=== PATIENT | male | born 1990 | race Caucasian/White ===

== ENCOUNTER 2017-01-20 14:31 | Emergency (ER) | payer BC ==
[2017-01-20 15:12] VITALS: BP 123/55
--- NOTE | 2017-01-20 15:18 | UC ---
Respiratory Complaint HPI - HPI Summary HPI Summary: cough and nasal congestion for 3 days, no fever - History of Current Complaint Chief Complaint: UCRespiratory Stated Complaint: COUGH Time Seen by Provider: 01/20/17 15:10 Hx Obtained From: Patient Onset/Duration: Sudden Onset, Lasting Days - 3, Still Present Timing: Constant Severity Initially: Mild Severity Currently: Mild Pain Intensity: 2 Character: Cough: Nonproductive Aggravating Factors: Allergens, Exertion Alleviating Factors: Nothing Associated Signs And Symptoms: Positive: Pleuritic Chest Pain, URI, Nasal Congestion, Hoarseness - Allergies/Home Medications Allergies/Adverse Reactions: Allergies Allergy/AdvReac Type Severity Reaction Status Date / Time Tuberculin Allergy Unknown Verified 01/20/17 15:08 [From Tuberculin PPD Emily Reaction Test] Details environmental Allergy Congestion Uncoded 01/20/17 15:08 PMH/Surg Hx/FS Hx/Imm Hx Previously Healthy: Yes - deviated Septum repair 2015 - Surgical History Surgical History: Yes Surgery Procedure, Year, and Place: right ankle 2005. appy [facility]. neck laceration with 23 stitches - Family History Known Family History: Positive: Unknown Family History: no know cardiovascular issues in family lineage - Social History Occupation: Employed Full-time Lives: With Family Alcohol Use: Weekly Alcohol Amount: WEEKENDS Substance Use Type: Marijuana Substance Use Comment - Amount & Last Used: last use - last weekend Smoking Status (MU): Never Smoked Tobacco - Immunization History Most Recent Influenza Vaccination: None Most Recent Tetanus Shot: UTD Most Recent Pneumonia Vaccination: N/A Review of Systems Constitutional: Negative Skin: Negative Eyes: Negative ENT: Nasal Discharge Respiratory: Cough Cardiovascular: Negative Gastrointestinal: Negative Genitourinary: Negative Motor: Negative Neurovascular: Negative Musculoskeletal: Negative Neurological: Negative Psychological: Negative All Other Systems Reviewed And Are Negative: Yes Physical Exam Triage Information Reviewed: Yes Appearance: Well-Appearing, No Pain Distress Vital Signs: Initial Vital Signs Temp 99.3 F 01/20/17 15:09 Pulse 67 01/20/17 15:09 Resp 18 01/20/17 15:09 BP 123/55 01/20/17 15:09 Pulse Ox 99 01/20/17 15:09 Vital Signs Reviewed: Yes Eye Exam: Normal Eyes: Positive: Conjunctiva Clear ENT Exam: Normal ENT: Positive: Normal ENT inspection, Hearing grossly normal, Pharynx normal, Nasal congestion, Nasal drainage, TMs normal. Negative: Tonsillar swelling, Tonsillar exudate, Trismus, Muffled/hoarse voice Dental Exam: Normal Neck exam: Normal Neck: Positive: Supple, Nontender, No Lymphadenopathy Respiratory Exam: Normal Respiratory: Positive: Chest non-tender, Lungs clear, Normal breath sounds, No respiratory distress, No accessory muscle use Cardiovascular Exam: Normal Cardiovascular: Positive: RRR, No Murmur, Pulses Normal, Brisk Capillary Refill Musculoskeletal Exam: Normal Musculoskeletal: Positive: Strength Intact, ROM Intact, No Edema Neurological Exam: Normal Neurological: Positive: Alert, Muscle Tone Normal Psychological Exam: Normal Skin Exam: Normal Diagnostic Evaluation - Laboratory O2 Sat by Pulse Oximetry: 99 Respiratory Course/Dx - Course Course Of Treatment: Zyrtec D, Flonase, Increase fluids, follow with pcp - Differential Dx/Diagnosis Differential Diagnosis/HQI/PQRI: Bronchitis, Influenza, Laryngitis, Lower Resp Infection, Sinusitis Provider Diagnoses: Allergic rhinnosinusitis Discharge - Discharge Plan Condition: Stable Disposition: HOME Prescriptions: Albuterol HFA INHALER* [Ventolin HFA Inhaler*] 2 puff INH Q4H PRN #1 mdi PRN Reason: cough/chest congestion Cetirizine-Pseudoephedrine [Zyrtec-D Allergy/Congesti] 1 tab PO BID PRN #20 tab PRN Reason: Sinus congestion, nasal draina Fluticasone NASAL SPRAY 50MCG* [Flonase NASAL SPRAY 50MCG*] 2 spray BOTH NARES DAILY #1 btl Patient Education Materials: How to Use a Metered-Dose Inhaler (ED), Allergic Rhinitis (ED), Acute Cough (ED), How to Use Nasal [place] (ED) Referrals: Charles LOPEZ,Bobo Mariee [Primary Care Provider] - 1 Week
[2017-01-20] MEDS ORDERED: Albuterol HFA INHALER* 8 gm MDI INH ONE (17:17)
== END 2017-01-20 15:58 | disposition home or self-care (01) ==
LOC: UCCORT 14:31
DX: J30.9 Allergic rhinitis, unspecified (principal)
CPT/HCPCS: 99212; A9270-GY; G0463

== ENCOUNTER 2017-04-11 17:11 | Emergency (ER) | payer BC ==
[2017-04-11 17:47] VITALS: BP 123/66
--- NOTE | 2017-04-11 18:04 | UC ---
Lower Extremity/Ankle HPI - HPI Summary HPI Summary: Patient injuryed left ankle playing baseball. - History of Current Complaint Chief Complaint: UCLowerExtremity Stated Complaint: ankle injury Time Seen by Provider: 04/11/17 17:55 Hx Obtained From: Patient Onset/Duration: Sudden Onset, Lasting Hours Severity Initially: Severe Severity Currently: Moderate Aggravating Factor(s): Standing, Ambulation Alleviating Factor(s): Rest Able to Bear Weight: No - Risk Factors Gout Risk Factors: Negative DVT Risk Factors: Negative Septic Arthritis Risk Factor: Negative - Allergies/Home Medications Allergies/Adverse Reactions: Allergies Allergy/AdvReac Type Severity Reaction Status Date / Time Tuberculin Allergy Unknown Verified 04/11/17 17:48 [From Tuberculin PPD Emily Reaction Test] Details environmental Allergy Congestion Uncoded 04/11/17 17:48 PMH/Surg Hx/FS Hx/Imm Hx Previously Healthy: Yes - Surgical History Surgical History: Yes Surgery Procedure, Year, and Place: right ankle 2004. [place] [facility] [place] [facility] [place] neck laceration with 23 stitches - Family History Family History: no know cardiovascular issues in family lineage - Social History Alcohol Use: Weekly Alcohol Amount: WEEKENDS Substance Use Type: Marijuana Substance Use Comment - Amount & Last Used: last use - last weekend Smoking Status (MU): Never Smoked Tobacco - Immunization History Most Recent Influenza Vaccination: None Most Recent Tetanus Shot: UTD Most Recent Pneumonia Vaccination: N/A Review of Systems Constitutional: Negative Skin: Negative Eyes: Negative ENT: Negative Respiratory: Negative Cardiovascular: Negative Gastrointestinal: Negative Genitourinary: Negative Motor: Negative Neurovascular: Negative Musculoskeletal: Arthralgia, Decreased ROM, Edema, Myalgia Neurological: Negative Psychological: Negative All Other Systems Reviewed And Are Negative: Yes Physical Exam Triage Information Reviewed: Yes Appearance: Well-Appearing, Well-Nourished, Pain Distress Vital Signs: Initial Vital Signs Temp 100.0 F 04/11/17 17:41 Pulse 70 04/11/17 17:41 Resp 18 04/11/17 17:41 BP 123/66 04/11/17 17:41 Pulse Ox 97 04/11/17 17:41 Vital Signs Reviewed: Yes Eye Exam: Normal ENT Exam: Normal Dental Exam: Normal Neck exam: Normal Neck: Positive: Supple, Nontender, No Lymphadenopathy Respiratory Exam: Normal Respiratory: Positive: Chest non-tender, Lungs clear, Normal breath sounds Cardiovascular Exam: Normal Abdominal Exam: Normal Bowel Sounds: Positive: Present Musculoskeletal: Positive: Strength Limited @, ROM Limited @, Edema @ Neurological Exam: Normal Neurological: Positive: Alert, Muscle Tone Normal Psychological Exam: Normal Skin Exam: Normal Lower Extremity Course/Dx - Course Course Of Treatment: hx obtained, exam performed, meds reviewed, xray obtained, negative, patient refused pain medication, mk and splint applied. - Differential Dx/Diagnosis Differential Diagnosis/HQI/PQRI: Cellulitis, Contusion, Dislocation, Fracture ( Closed), Sprain, Strain Provider Diagnoses: muscle strain left lower leg. ankle sprain left Discharge - Discharge Plan Condition: Stable Disposition: HOME Patient Education Materials: Ankle Strain (ED) Additional Instructions: 1. use the mk and gel splint for swelling and stability 2. Rest and elevate 3. Ibuprofen for pain and swelling. 4. Follow up if not improving
--- NOTE | 2017-04-11 18:14 | RAD ---
INDICATION: Left ankle injury COMPARISON: None TECHNIQUE: AP, lateral, and oblique views were obtained. FINDINGS: There is no acute fracture or dislocation. There is mild lateral soft tissue swelling. IMPRESSION: MILD LATERAL SOFT TISSUE SWELLING.
== END 2017-04-11 18:30 | disposition home or self-care (01) ==
LOC: UCEAST 17:11
DX: S96.912A Strain of unspecified muscle and tendon at ankle and foot level, left foot, initial encounter (principal); X58.XXXA Exposure to other specified factors, initial encounter; Y93.67 Activity, basketball; Y92.9 Unspecified place or not applicable; Y99.9 Unspecified external cause status
CPT/HCPCS: 99213; G0463

== ENCOUNTER 2017-09-19 12:01 | Emergency (ER) | payer BC ==
[2017-09-19 12:30] VITALS: BP 121/64
--- NOTE | 2017-09-19 13:04 | RAD ---
Indication: Lateral LEFT ankle and foot pain following inversion injury. Comparison: April 11, 2017 Technique: AP, mortise, and lateral views LEFT ankle. Report: Negative for fracture or malalignment. Soft tissue swelling most prominent over the lateral malleolus. Suggestion of talocrural joint effusion. IMPRESSION: Consider lateral supporting ligament injury.
--- NOTE | 2017-09-19 13:06 | RAD ---
Indication: Lateral LEFT ankle and foot pain following inversion injury. Comparison: Ankle of the same date and November 09, 2012 LEFT foot exam. Technique: AP, lateral, and oblique views LEFT foot. REPORT AND IMPRESSION: Negative for fracture or malalignment. Normal variant bipartite sesamoid at the medial head of the flexor hallucis brevis. Lateral ankle and hindfoot soft tissue swelling.
--- NOTE | 2017-09-19 13:40 | UC ---
Lower Extremity/Ankle HPI - HPI Summary HPI Summary: WHILE PLAYING BASKETBALL, LANDED ON ANOTHER PLAYERS FOOT AND TWISTED LEFT ANKLE ONE HOUR CAN [employer]OVERER. NO PREVIOUS INJURY. - History of Current Complaint Chief Complaint: UCLowerExtremity Stated Complaint: LEFT ANKLE INJURY Time Seen by Provider: 09/19/17 12:26 Hx Obtained From: Patient Onset/Duration: Sudden Onset, Lasting Hours Severity Initially: Severe Severity Currently: Moderate Aggravating Factor(s): Standing, Ambulation Alleviating Factor(s): Rest, Elevation, Ice Able to Bear Weight: No - Risk Factors Gout Risk Factors: Negative DVT Risk Factors: Negative Septic Arthritis Risk Factor: Negative - Allergies/Home Medications Allergies/Adverse Reactions: Allergies Allergy/AdvReac Type Severity Reaction Status Date / Time Tuberculin Allergy Unknown Verified 09/19/17 12:26 [From Tuberculin PPD Emily Reaction Test] Details environmental Allergy Congestion Uncoded 09/19/17 12:26 Home Medications: Home Medications NK [No Home Medications Reported] 09/19/17 [History Confirmed 09/19/17] PMH/Surg Hx/FS Hx/Imm Hx Previously Healthy: Yes - Surgical History Surgical History: Yes Surgery Procedure, Year, and Place: right ankle 2005. appy [facility]. neck laceration with 23 stitches - Family History Known Family History: Positive: Unknown Family History: no know cardiovascular issues in family lineage - Social History Occupation: Employed Full-time Lives: With Family Alcohol Use: Weekly Alcohol Amount: WEEKENDS Substance Use Type: Marijuana Substance Use Comment - Amount & Last Used: Daily & Today Smoking Status (MU): Never Smoked Tobacco - Immunization History Most Recent Influenza Vaccination: Not the 2016/2017 Season Most Recent Tetanus Shot: 2017 Most Recent Pneumonia Vaccination: N/A Review of Systems Constitutional: Negative Skin: Negative Eyes: Negative ENT: Negative Respiratory: Negative Cardiovascular: Negative Gastrointestinal: Negative Genitourinary: Negative Motor: Negative Neurovascular: Negative Musculoskeletal: Arthralgia, Edema - LEFT LATERAL ANKLE, Myalgia Neurological: Negative Psychological: Negative Is Patient Immunocompromised?: No All Other Systems Reviewed And Are Negative: Yes Physical Exam Triage Information Reviewed: Yes Appearance: Well-Appearing, No Pain Distress, Well-Nourished Vital Signs: Initial Vital Signs Temp 99.4 F 09/19/17 12:25 Pulse 88 09/19/17 12:25 Resp 16 09/19/17 12:25 BP 121/64 09/19/17 12:25 Pulse Ox 100 09/19/17 12:25 Vital Signs Reviewed: Yes Eye Exam: Normal ENT Exam: Normal ENT: Positive: Normal ENT inspection Dental Exam: Normal Neck exam: Normal Neck: Positive: Supple, Nontender Respiratory Exam: Normal Respiratory: Positive: Chest non-tender, Lungs clear, Normal breath sounds, No respiratory distress, No accessory muscle use Cardiovascular Exam: Normal Cardiovascular: Positive: RRR, No Murmur, Pulses Normal, Brisk Capillary Refill Abdominal Exam: Normal Abdomen Description: Positive: Nontender, No Organomegaly Musculoskeletal: Positive: Strength Limited @, ROM Limited @, Edema @ - LEFT LATERAL ANKLE Neurological Exam: Normal Psychological Exam: Normal Skin Exam: Normal Diagnostics - Radiology No standard instances Xray Interpretation: Positive (See Comments) Radiology Interpretation Completed By: Radiologist - Interpreted by radiologist , reviewed by [place]. Interpretation :NO FRACTURE; CONSIDER LATERAL SUPPORTING LIGAMENT INJURY Lower Extremity Course/Dx - Differential Dx/Diagnosis Differential Diagnosis/HQI/PQRI: Fracture (Closed), Sprain, Strain Provider Diagnoses: LEFT ANKLE SPRAIN WITH LATERAL SUPPORTING LIGAMENT INJURY. Discharge - Discharge Plan Condition: Stable Disposition: HOME Patient Education Materials: Ankle Sprain (ED), Swollen Ankle Joint (ED) Forms: *Work Release Referrals: Singh Hu MD [Medical Doctor] - Bobo Soto MD [Primary Care Provider] - Additional Instructions: LIKELY LATERAL SUPPORTING LIGAMENT INJURY OF THE LEFT ANKLE.
== END 2017-09-19 13:53 | disposition home or self-care (01) ==
LOC: UCCORT 12:01
DX: S93.402A Sprain of unspecified ligament of left ankle, initial encounter (principal); W51.XXXA Accidental striking against or bumped into by another person, initial encounter; Y93.67 Activity, basketball; Y92.310 Basketball court as the place of occurrence of the external cause; F12.90 Cannabis use, unspecified, uncomplicated
CPT/HCPCS: 99213; G0463

== ENCOUNTER 2017-09-28 13:54 | Emergency (ER) | payer BC ==
--- NOTE | 2017-09-28 15:54 | UC ---
Lower Extremity/Ankle HPI - HPI Summary HPI Summary: 27 year old male presents for recheck of left ankle sprain. - History of Current Complaint Stated Complaint: RECHECK LEFT ANKLE Time Seen by Provider: 09/28/17 15:53 Hx Obtained From: Patient Onset/Duration: Sudden Onset Severity Initially: Moderate Severity Currently: Moderate Pain Scale Used: 0-10 Numeric - 6 Aggravating Factor(s): Nothing Alleviating Factor(s): Nothing - Allergies/Home Medications Allergies/Adverse Reactions: Allergies Allergy/AdvReac Type Severity Reaction Status Date / Time Tuberculin Allergy Unknown Verified 09/28/17 16:00 [From Tuberculin PPD Emily Reaction Test] Details environmental Allergy Congestion Uncoded 09/28/17 16:00 PMH/Surg Hx/FS Hx/Imm Hx Previously Healthy: Yes - Surgical History Surgical History: Yes Surgery Procedure, Year, and Place: right ankle 2004. appy [facility]. neck laceration with 23 stitches - Family History Known Family History: Positive: Unknown Family History: no know cardiovascular issues in family lineage - Social History Alcohol Use: Weekly Alcohol Amount: WEEKENDS Substance Use Type: Marijuana Substance Use Comment - Amount & Last Used: Daily & Today Smoking Status (MU): Never Smoked Tobacco - Immunization History Most Recent Influenza Vaccination: Not the 2017/2017 Season Most Recent Tetanus Shot: 2017 Most Recent Pneumonia Vaccination: N/A Review of Systems Constitutional: Negative Skin: Negative Eyes: Negative ENT: Negative Respiratory: Negative Cardiovascular: Negative Gastrointestinal: Negative Genitourinary: Negative Motor: Negative Neurovascular: Negative Musculoskeletal: Other: - left ankle pain Neurological: Negative Psychological: Negative All Other Systems Reviewed And Are Negative: Yes Physical Exam Triage Information Reviewed: Yes Vital Signs Reviewed: Yes Eye Exam: Normal ENT Exam: Normal Dental Exam: Normal Neck exam: Normal Neck: Positive: 1 Respiratory Exam: Normal Cardiovascular Exam: Normal Abdominal Exam: Normal Musculoskeletal: Positive: Other: - left ankle pain Neurological Exam: Normal Psychological Exam: Normal Skin Exam: Normal Lower Extremity Course/Dx - Differential Dx/Diagnosis Provider Diagnoses: resolving left ankle sprain Discharge - Discharge Plan Condition: Stable Disposition: HOME Prescriptions: Meloxicam [Mobic] 7.5 mg PO BID #30 tab Patient Education Materials: Ankle Sprain (ED) Forms: *Work Release Referrals: Charles LOPEZ,Bobo Mariee [Medical Doctor] -
[2017-09-28 16:00] VITALS: BP 118/74
== END 2017-09-28 16:16 | disposition home or self-care (01) ==
LOC: UCCORT 13:54
DX: S93.402D Sprain of unspecified ligament of left ankle, subsequent encounter (principal); X58.XXXD Exposure to other specified factors, subsequent encounter; Z88.8 Allergy status to other drugs, medicaments and biological substances; F12.90 Cannabis use, unspecified, uncomplicated
CPT/HCPCS: 99212; G0463

== ENCOUNTER 2019-08-21 08:46 | Emergency (ER) | payer BC ==
[2019-08-21 09:12] VITALS: BP 116/82
--- NOTE | 2019-08-21 09:51 | UC ---
Eye Complaint HPI - HPI Summary HPI Summary: 29-year-old male comes in with chief complaint of swelling and redness of the right upper eyelid. Going on for about 4 days. He did have a pustule that resolved. He has been using warm compresses. Is been no improvement in the last couple of days and he is getting some crusting in the morning. Minimal rhinorrhea. Pain is worse when he is blinking his eye. No fevers no chills feels well otherwise. - History of Current Complaint Chief Complaint: UCEye Stated Complaint: RT EYE CONCERN Time Seen by Provider: 08/21/19 09:39 Pain Intensity: 3 - Allergies/Home Medications Allergies/Adverse Reactions: Allergies Allergy/AdvReac Type Severity Reaction Status Date / Time tuberculin,PPD,multi-puncture Allergy Unknown Verified 08/21/19 09:13 Reaction Details Starts with a "K" Allergy Unknown Uncoded 08/21/19 09:13 Reaction as a Child PMH/Surg Hx/FS Hx/Imm Hx Previously Healthy: Yes - Surgical History Surgical History: Yes Surgery Procedure, Year, and Place: right ankle 2005. appy [facility]. neck laceration with 23 stitches - Family History Known Family History: Positive: Unknown Family History: no know cardiovascular issues in family lineage - Social History Alcohol Use: Weekly Alcohol Amount: WEEKENDS Substance Use Type: Marijuana Substance Use Comment - Amount & Last Used: Daily Smoking Status (MU): Former Smoker Length of Time of Smoking/Using Tobacco: Daily Smokeless Tobacco x 8 Years When Did the Patient Quit Smoking/Using Tobacco: ~2014 - Immunization History Most Recent Influenza Vaccination: Not the 2017/2017 Season Most Recent Tetanus Shot: 2017 Most Recent Pneumonia Vaccination: N/A Review of Systems All Other Systems Reviewed And Are Negative: Yes Constitutional: Positive: Negative Skin: Positive: Other - SEE HPI Eyes: Positive: Drainage, Other - SEE HPI ENT: Positive: Nasal Discharge Respiratory: Positive: Negative Cardiovascular: Positive: Negative Gastrointestinal: Positive: Negative Motor: Positive: Negative Neurovascular: Positive: Negative Musculoskeletal: Positive: Negative Neurological: Positive: Negative Psychological: Positive: Negative Is Patient Immunocompromised?: No Physical Exam Triage Information Reviewed: Yes Appearance: Well-Appearing, No Pain Distress, Well-Nourished Vital Signs: Initial Vital Signs Temp 97.5 F 08/21/19 09:09 Pulse 94 08/21/19 09:09 Resp 16 08/21/19 09:09 BP 116/82 08/21/19 09:09 Pulse Ox 99 08/21/19 09:09 Vital Signs Reviewed: Yes Eyes: Positive: Conjunctiva Clear, Other: - Right upper eyelid is swollen and erythematous. There is no scleral injection. ENT: Negative: Nasal drainage Neck: Positive: Supple Respiratory: Positive: No respiratory distress Musculoskeletal: Positive: Strength Intact, ROM Intact Neurological: Positive: Alert Psychological: Positive: Age Appropriate Behavior Skin: Positive: Other - Right upper eyelid is swollen and erythematous. Eye Complaint Course/Dx - Course Course Of Treatment: Patient has a sty of the right upper eyelid. We'll treat with tobramycin. Is a question of whether or not the erythema is spreading past the eyelid into a potential cellulitis therefore we'll treat with Keflex by mouth also. Patient' s he reevaluate if worsening questions or concerns. - Differential Dx/Diagnosis Provider Diagnosis: Hordeolum of right upper eyelid Discharge ED - Sign-Out/Discharge Documenting (check all that apply): Patient Departure All imaging exams completed and their final reports reviewed: No Studies - Discharge Plan Condition: Stable Disposition: HOME Prescriptions: Cephalexin CAP* [Keflex CAP*] 500 mg PO TID #30 cap Tobramycin 0.3% OPHTH.ARISTIDES* 1 drop RIGHT EYE Q4H #1 btl Patient Education Materials: Cellulitis (ED), Stye (ED) Referrals: [facility] [Provider Group] Guero Nascimento MD [Medical Doctor] - Adri Mohan MD [Medical Doctor] - Additional Instructions: FOLLOW UP WITH OPHTHALMOLOGY IF NOT COMPLETELY IMPROVED. GET REEVALUATED IF NOT IMPROVING OR WORSE; PAIN, SPREAD OF INFECTION, FEVER, YOU FEEL ILL OR ANY QUESTIONS OR CONCERNS. - Billing Disposition and Condition Condition: STABLE Disposition: Home
== END 2019-08-21 10:00 | disposition home or self-care (01) ==
LOC: UCCORT 08:46
DX: H00.011 Hordeolum externum right upper eyelid (principal); Z87.891 Personal history of nicotine dependence
CPT/HCPCS: 99212; G0463

== ENCOUNTER 2019-12-13 08:36 | Emergency (ER) | payer BC ==
[2019-12-13 08:54] VITALS: BP 118/72
--- NOTE | 2019-12-13 10:37 | UC ---
Epistaxis Nasal HPI - HPI Summary HPI Summary: sore in left nostril x 1 weeks the sore is tender , feel like a scab , pt. remove the scab and made it bleed, no nasal congestion , no pnd , no fever, no chills - History of Current Complaint Chief Complaint: UCGeneralIllness Stated Complaint: NASAL COMPLAINT Time Seen by Provider: 12/13/19 09:11 Hx Obtained From: Patient Onset/Duration: Gradual Onset, Lasting Days - 5, Still Present Timing: Constant Severity Initially: Moderate Severity Currently: Moderate Pain Intensity: 0 Pain Scale Used: 0-10 Numeric Aggravating Factor(s): Nothing Alleviating Factor(s): Nothing Associated Signs And Symptoms: Negative: Bruising, Hematuria, Hematochezia, Sinus Pain, Nasal Discharge, Recent Abnormal Coagulation Studies, Foreign Body - Allergies/Home Medications Allergies/Adverse Reactions: Allergies Allergy/AdvReac Type Severity Reaction Status Date / Time tuberculin,PPD,multi-puncture Allergy Unknown Verified 12/13/19 08:54 Reaction Details Starts with a "K" Allergy Unknown Uncoded 12/13/19 08:54 Reaction as a Child Home Medications: Home Medications Fluticasone NASAL SPRAY 50MCG* [Flonase NASAL SPRAY 50MCG*] 2 spray BOTH NARES DAILY #1 btl 12/13/19 [Rx] PMH/Surg Hx/FS Hx/Imm Hx - Additional Past Medical History Additional PMH: nose injury / broken nose x 2 nasal surgery - Surgical History Surgical History: Yes Surgery Procedure, Year, and Place: right ankle 2005. appy [facility]. neck laceration with 23 stitches - Family History Known Family History: Positive: Unknown Negative: Diabetes Family History: no know cardiovascular issues in family lineage - Social History Alcohol Use: Weekly Alcohol Amount: WEEKENDS Substance Use Type: Marijuana Substance Use Comment - Amount & Last Used: Daily Smoking Status (MU): Former Smoker Length of Time of Smoking/Using Tobacco: Daily Smokeless Tobacco x 8 Years When Did the Patient Quit Smoking/Using Tobacco: ~2013 - Immunization History Most Recent Influenza Vaccination: Not the 2017/2017 Season Most Recent Tetanus Shot: 2017 Most Recent Pneumonia Vaccination: N/A Review of Systems All Other Systems Reviewed And Are Negative: Yes Is Patient Immunocompromised?: No Physical Exam Triage Information Reviewed: Yes Appearance: Well-Appearing, No Pain Distress, Well-Nourished Vital Signs: Initial Vital Signs Temp 98.4 F 12/13/19 08:47 Pulse 50 12/13/19 08:47 Resp 16 12/13/19 08:47 BP 118/72 12/13/19 08:47 Pulse Ox 100 12/13/19 08:47 Vital Signs Reviewed: Yes Eye Exam: Normal Eyes: Positive: Conjunctiva Clear ENT: Positive: Normal ENT inspection, Hearing grossly normal, Pharynx normal, Other - nasal polyps bilateral Neck: Positive: Supple, Nontender, No Lymphadenopathy Respiratory Exam: Normal Respiratory: Positive: Chest non-tender, Lungs clear Cardiovascular: Positive: RRR, No Murmur, Pulses Normal Abdominal Exam: Normal Epistaxis Nasal Course/Dx - Differential Dx/Diagnosis Provider Diagnosis: Nasal polyp Discharge ED - Sign-Out/Discharge Documenting (check all that apply): Patient Departure All imaging exams completed and their final reports reviewed: No Studies - Discharge Plan Condition: Stable Disposition: HOME Prescriptions: Fluticasone NASAL SPRAY 50MCG* [Flonase NASAL SPRAY 50MCG*] 2 spray BOTH NARES DAILY #1 btl Patient Education Materials: Nasal Polyps (ED) Referrals: No Primary Care Phys,NOPCP [Primary Care Provider] - 2 Weeks - Billing Disposition and Condition Condition: STABLE Disposition: Home
== END 2019-12-13 09:39 | disposition home or self-care (01) ==
LOC: UCCORT 08:36
DX: J33.8 Other polyp of sinus (principal); Z98.890 Other specified postprocedural states; Z87.891 Personal history of nicotine dependence; Z88.8 Allergy status to other drugs, medicaments and biological substances; Z91.09 Other allergy status, other than to drugs and biological substances
CPT/HCPCS: 99212; G0463